=== PATIENT | male | born 1955 | race Caucasian/White ===

== ENCOUNTER → 2019-10-21 08:38 | Outpatient (CLI) | payer MEDICARE, MEDICAID, SELFPAY | PROVIDERS: Visit Provider Family Medicine | DX: I87.2 Venous insufficiency (chronic) (peripheral) (principal); E11.622 Type 2 diabetes mellitus with other skin ulcer; E11.65 Type 2 diabetes mellitus with hyperglycemia; E11.40 Type 2 diabetes mellitus with diabetic neuropathy, unspecified; L97.821 Non-pressure chronic ulcer of other part of left lower leg limited to breakdown of skin; L97.811 Non-pressure chronic ulcer of other part of right lower leg limited to breakdown of skin; R60.0 Localized edema | CPT/HCPCS: 11042; 93922; 99213; 99214 ==

== ENCOUNTER → 2019-10-25 14:18 | Outpatient (CLI) | payer MEDICARE, MEDICAID, SELFPAY | PROVIDERS: Visit Provider Family Medicine | DX: I87.2 Venous insufficiency (chronic) (peripheral) (principal); L97.821 Non-pressure chronic ulcer of other part of left lower leg limited to breakdown of skin; L97.811 Non-pressure chronic ulcer of other part of right lower leg limited to breakdown of skin | CPT/HCPCS: 29581 ==

== ENCOUNTER → 2019-10-28 09:32 | Outpatient (CLI) | payer MEDICARE, MEDICAID, SELFPAY | PROVIDERS: Visit Provider Family Medicine | DX: I87.2 Venous insufficiency (chronic) (peripheral) (principal); E11.622 Type 2 diabetes mellitus with other skin ulcer; R60.0 Localized edema; E11.65 Type 2 diabetes mellitus with hyperglycemia; L97.821 Non-pressure chronic ulcer of other part of left lower leg limited to breakdown of skin; L97.811 Non-pressure chronic ulcer of other part of right lower leg limited to breakdown of skin | CPT/HCPCS: 97597 ==

== ENCOUNTER → 2019-11-04 09:45 | Outpatient (CLI) | payer MEDICARE, MEDICAID, SELFPAY | PROVIDERS: Visit Provider Family Medicine | DX: I87.2 Venous insufficiency (chronic) (peripheral) (principal); L97.811 Non-pressure chronic ulcer of other part of right lower leg limited to breakdown of skin; R60.0 Localized edema | CPT/HCPCS: 99213; 99214 ==

== ENCOUNTER → 2019-11-25 08:50 | Outpatient (CLI) | payer MEDICARE, MEDICAID, SELFPAY | PROVIDERS: Visit Provider Family Medicine | DX: I87.2 Venous insufficiency (chronic) (peripheral) (principal); R60.9 Edema, unspecified | CPT/HCPCS: 99212; 99213 ==

== ENCOUNTER → 2024-01-09 15:41 | Outpatient (CLI) | payer MEDICARE, MEDICAID, SELFPAY | PROVIDERS: Referring Provider Nurse Practitioner; Visit Provider Nurse Practitioner | DX: J44.9 Chronic obstructive pulmonary disease, unspecified (principal); Z87.891 Personal history of nicotine dependence | CPT/HCPCS: 94060; 94726; 94729 ==

== ENCOUNTER 2025-02-24 16:53 | Emergency (ER) | payer MEDICARE, MEDICAID, SELFPAY ==
[2025-02-24] VITALS (46 sets, daily range): BP systolic 70–243; BP diastolic 40–162; PULSE 0–199; RESP 0–117; TEMP 26.4–26.6; O2SAT 77–100
--- NOTE | 2025-02-24 17:14 | EKG_ITS ---
[address] [address] Test Date: 2025-02-24 Pat Name: Lance Barlow Department: Room: Gender: Male Environmental Sustainability Manager: AUREA : 1955 Requested By: Order Number: [id number] Reading MD: Enoch Meehan Measurements Intervals Nicholson Rate: 82 P: MI: QRS: -49 QRSD: 204 T: 130 QT: 658 QTc: 768 Interpretive Statements Wide QRS rhythm with premature ventricular complexes or fusion complexes Left axis deviation Nonspecific intraventricular block Minimal voltage criteria for LVH, may be normal variant ( Giovanny product ) Inferior infarct , age undetermined Anterolateral infarct , age undetermined Electronically Signed On 03-01-2025 20:08:59 PDT by Enoch Meehan
[2025-02-24 17:30] LABS: Add Manual Diff / Slide Review NO; Basophils Absolute Auto 0 /uL (0-100); Eosinophils Absolute Auto 0 /uL (0-450); Eosinophils Percent Auto 0.1 % (2-4); Hematocrit 44.9 % (41-53); Hemoglobin 14.6 g/dL (13.5-17.5); Lymphocytes Absolute Auto 700 /uL (1100-4500); Mean Corpuscular HGB Conc 32.4 % (30-36); Mean Corpuscular Hemoglobin 31.1 PG (26-34); Monocytes Absolute Auto 500 /uL (0-900); Monocytes Percent Auto 6.4 % (3-14); Neutrophils Absolute Auto 6200 /uL (1500-7000); Neutrophils Percent Auto 83.5 % (50-75); Platelet Count 64 X10^3/uL (150-400); Red Blood Cell Count 4.68 X10^6/uL (4.5-5.9); Red Cell Distribution Width 17.4 % (11.6-14.8); White Blood Cell Count 7.5 X10^3/uL (4.5-11.0)
[2025-02-24 17:39] LABS: Ethanol (ETOH) < 10 mg/dL; Lactate (Lactic Acid) 1.2 mmol/L (0.7-2.1)
[2025-02-24 17:40] LABS: Alanine Aminotransferase 38 IU/L (<50); Albumin 3.4 g/dL (3.5-5.0); Albumin Globulin Ratio 0.9 (1.0-2.8); Alkaline Phosphatase 111 U/L (38-126); Aspartate Aminotransferase 64 IU/L (17-59); BUN Creatinine Ratio 35.1 (6-22); Bilirubin Total 1.1 mg/dL (0.2-1.3); Blood Urea Nitrogen 47 mg/dL (9-20); Calcium 7.9 mg/dL (8.4-10.2); Carbon Dioxide 24 mmol/L (22-32); Chloride 112 mmol/L (98-107); Creatine Kinase 201 U/L (55-170); Estimated Glomerular Filt Rate 57 mL/min (>60); Globulin 3.6 g/dL (1.7-4.1); Glucose 114 mg/dL (80-110); Lipase 33 U/L (23-300); Potassium 4.5 mmol/L (3.4-5.1); Sodium 144 mmol/L (137-145)
[2025-02-24 17:46] LABS: HEMOLYSIS 95 (0-50)
[2025-02-24 17:52] LABS: Troponin I 0.031 ng/mL (0.01-0.034)
[2025-02-24 17:54] LABS: Magnesium 1.7 mg/dL (1.6-2.3)
[2025-02-24 17:57] LABS: Procalcitonin 0.171 ng/mL (<0.5)
[2025-02-24 18:03] LABS: INR 3.1 (0.9-1.3); Prothrombin Time 34.6 SECONDS (9.4-12.5)
[2025-02-24 18:06] LABS: PTT Partial Thromboplastin Tim 70 SECONDS (25.1-36.5)
--- NOTE | 2025-02-24 18:13 | PC.NURSE ---
Arrives via [facility]. Hypothermic. pulse 30's, BP 60's systolic. glucose 26. amp D50 given by EMS. intubated in field with rocuronium and ketamine. no other sedation was given on the ride over. Per EMS there had been no purposeful movement prior to intubation. 7.5 ETT 23@ teeth. code blue at 1700. 1mg atropine given on arrival. core temp 79.1. Unable to document temp lower than 80F in charting. legs and abdomen appear mottled. extensive infectious skin of bilateral legs. Per EMS, pt had PCP visit weeks ago and was told to go straight to ED and did not. 18G RFA 20G LFA. transfer of care to ED ventilator. RT at bedside. 1700: Dyana Knox called, CPR started. 1 mg epi given IVP with flush 1703: Pulse check. PEA. CPR resumed. epi 1 mg given IVP with flush. compressor changed. 1706: pulse check. ROSC. carotid pulse felt. palp about 60 bpm. labs drawn. Pharmacy with epi gtt started at 2mcg/min. EKG with wide perfusing rhythm. suspect hyperkalemia. Calcium gluconate infusing. 1amp bicarb given. temp Gibson placed. Set up for femoral central line. deanna hugger and fluid warmer prepped and in place. ABG obtained. 1724: PEA arrest. CPR started. 1725: epi 1mg given IVP with flush 1725: pulse check. weak pulse felt. CPR continued. compressor changed. 1728: pulse check. Weak pulse felt. CPR continued. bicarb gtt infusing 250ml/hr. Epi gtt infusing wide open per Dr Aguilar. 1731: pulse check. weak pulse felt. CPR continued per provider so bicarb and epi can circulate. compressor changed. 1736: pulse check. weak pulse felt. US of heart obtained by Dr Aguilar at bedside. heart with contractions however did not appear to be perfusing rhythm. Attempting to get in contact with family members. No POLST. no advanced directive on file. Ric in department. Advised there is no POA. 3D TECHNOLOGIST and RN coordinator speaking with Ric. 1740: BS 135. 10unit regular insulin, amp D50 given for hyperkalemia 1744: central line successfully placed R femoral. XR called for confirmation. 1748: epi gtt completed, calcium gluconate completed. IV's flushed. 1754: PEA. CPR started. 1800: per family, stop CPR. Efforts ceased at 1800. removed from monitoring. 1839: Time of by Dr Aguilar.
--- NOTE | 2025-02-24 18:13 | PC.NURSE ---
received patient. PEA CPR initiated. Dr. Aguilar at bedside . see record for further treatment.
--- NOTE | 2025-02-24 18:14 | ED_ITS ---
HPI - General Adult General Chief complaint: Unresponsive Stated complaint: intubated hypothermic Time Seen by Provider: 02/24/25 18:13 History of Present Illness HPI narrative: 69-year-old male noted to be unresponsive at home welfare check, EMS found patient to have diminished GCS 5, hypothermia, hypoglycemia with glucose 30, IV established, dextrose given, glucose 180, still not responsive, intubated in the field with sedative/paralytic, 7.5 ET tube placed, breath sounds equal. Reportedly patient lives alone somewhat like a hermit, however did see his primary care provider in the last 2-3 weeks, per EMS at that time was told that he should go to the emergency department but refused to do so. Otherwise no recent history recent days known. Related Data Home Medications Medication Instructions Recorded Confirmed aspirin 81 mg tablet,delayed 81 mg PO QDAY ##0 12/25/12 release lisinopril 10 mg tablet 10 mg PO QDAY ##0 12/25/12 metformin 500 mg tablet 500 mg PO BIDCC ##0 12/25/12 (Glucophage) pravastatin 20 mg tablet 20 mg PO HS ##0 12/25/12 furosemide 40 mg tablet 80 mg PO BID ##0 07/13/13 glipizide 5 mg tablet 5 mg PO BID ##0 07/13/13 metoprolol tartrate 25 mg tablet 25 mg PO BID ##0 07/13/13 Allergies Allergy/AdvReac Type Severity Reaction Status Date / Time amlodipine [AMLODIPINE] Allergy Unknown Stopped Unverified 02/25/18 12:58 due to swelling. Patient unaware of allergy. Review of Systems Review of Systems Narrative: unknown recent days sx symptoms Exam Narrative Exam Narrative: GENERAL: Unresponsive, ET tube in place by EMS HEAD: No obvious trauma to face or scalp EYES: Pupils equal fixed round. ENT: Nose without bleeding, purulent drainage. Throat without erythema, tonsillar hypertrophy or exudate. Airway patent. Oral tracheal endotracheal tube in place. NECK: Trachea midline. ET tube in place CARDIOVASCULAR: Regular rate and rhythm without murmurs, gallops, or rubs. RESPIRATORY: Clear to auscultation. Breath sounds equal bilaterally. No wheezes, rales, or rhonchi. GASTROINTESTINAL: Abdomen soft, non-tender, nondistended. EXTREMITIES: Mottled appearance to lower extremities, with venous stasis like ulcerations and some erythema to lower extremity both shins. NEURO: Unresponsive, ET tube in place from EMS, no spontaneous movement nor to pain response. GCS 3. Initial Vital Signs Initial Vital Signs: Vital Signs Pulse Rate 32 L 02/24/25 16:50 Blood Pressure 70/40 L 02/24/25 16:50 Procedures Central Line Placement Right Femoral: Time of procedure: 18:15 Time Out Performed: No (between pulse checks during cardiopulmonary arrest w/ transient ROSC ) MD Prep: mask, gown and gloves Central Line Prep: Chlorhexidine scrub Ultrasound Used for Placement: Yes Central Line Lumen Inserted: triple Post Procedure: sutured in place and good blood return Complications: none Additional Comments: Right femoral catheter placed after rounds of resuscitation for PE a, when he seemed to have blood pressure and pulse enough to attempt central access in case of persistent raw skin need for transfer, right femoral line was placed with good aspiration of ports before he coded again and resuscitation efforts were ceased due to family/niece request. Course Orders Ordered: ED Orders 02/24/25 16:19 Urinalysis and Microscopic Stat 02/24/25 17:10 Blood Culture Stat Complete Blood Count AUTO DIFF Stat Comprehensive Metabolic Panel Stat ETOH [Ethanol (ETOH)] Stat Lactate (Lactic Acid) Stat Lipase Stat Magnesium Stat Procalcitonin Stat Troponin & CK Cardiac Panel Stat 02/24/25 17:14 EKG-12 Lead Stat 02/24/25 17:47 PTT Partial Thromboplastin Marquise Stat Prothrombin Time INR Stat 02/24/25 17:52 Ventilator Order 02/24/25 19:23 Consult to WELDING SYSTEMS AND EQUIPMENT REPAIRER - Invoice Machine Operator Stat Sodium Bicarbonate 150 meq/ (Sterile Water) 1,150 mls @ 150 mls/hr IV CONT SHANELL Epinephrine HCl 4 mg/ Dextrose 250 mls @ 7.5 mls/hr IV TITRATE SHANELL; Protocol Ondansetron HCl (Ondansetron 4 Mg/2 Ml Inj) 4 mg IV NOW PRN PRN Reason: Nausea And Vomiting Ondansetron HCl (Ondansetron 4 Mg Odt) 4 mg SL NOW PRN PRN Reason: Nausea And Vomiting Discontinued Medications Atropine Sulfate (Atropine 1 Mg/10 Ml Syringe) 1 mg IV NOW ONE Stop: 02/24/25 16:56 Dextrose (Dextrose 50 % In Water 25 Gm/50 Ml Syringe) 25 gm IV NOW ONE Stop: 02/24/25 17:41 Epinephrine HCl (Epinephrine 1 Mg/10 Ml Syringe) 1 mg IV NOW ONE Stop: 02/24/25 17:01 Epinephrine HCl (Epinephrine 1 Mg/10 Ml Syringe) 1 mg IV NOW ONE Stop: 02/24/25 17:04 Epinephrine HCl (Epinephrine 1 Mg/10 Ml Syringe) 1 mg IV NOW ONE Stop: 02/24/25 17:26 Epinephrine HCl (Epinephrine 1 Mg/10 Ml Syringe) 1 mg IV NOW ONE Stop: 02/24/25 17:35 Epinephrine HCl (Epinephrine 1 Mg/10 Ml Syringe) 1 mg IV NOW ONE Stop: 02/24/25 17:59 Sodium Chloride (Normal Saline 0.9%) 1,000 mls @ 1,000 mls/hr IV BOLUS ONE Stop: 02/24/25 18:13 Calcium Gluconate 9.3 meq/ (Sodium Chloride) 70 mls @ 140 mls/hr IV NOW ONE Stop: 02/24/25 17:59 Cefepime HCl 2 gm/ Sodium (Chloride) 100 mls @ 200 mls/hr IV NOW ONE Stop: 02/24/25 17:21 Vancomycin HCl/Dextrose (Vancomycin) 2,000 mg in 400 mls @ 200 mls/hr IV NOW ONE Stop: 02/24/25 19:20 Insulin Human Regular (Insulin Regular 100 Unit/Ml 3 Ml Vial) 10 unit IV NOW ONE Stop: 02/24/25 17:41 Sodium Bicarbonate (Sodium Bicarb 8.4% Syringe) 50 meq IV NOW ONE Stop: 02/24/25 17:26 Sodium Bicarbonate (Sodium Bicarb 8.4% Syringe) 50 meq IV NOW ONE Stop: 02/24/25 17:31 Sodium Bicarbonate (Sodium Bicarb 8.4% Syringe) 100 meq IV NOW ONE Stop: 02/24/25 17:02 Vital Signs Vital signs: Vital Signs - 8 hr 02/24/25 16:50 02/24/25 16:58 02/24/25 17:00 Temperature Pulse Rate 32 L 26 L 170 H Respiratory Rate 31 H Blood Pressure 70/40 L Pulse Oximetry 99 97 Oxygen Delivery Method Nasal Cannula Ambu Bag Nasal Cannula Oxygen Flow Rate 5 5 02/24/25 17:02 02/24/25 17:04 02/24/25 17:06 Temperature Pulse Rate 128 H 107 H 90 Respiratory Rate 14 Blood Pressure 169/89 H 243/143 H 241/156 H Pulse Oximetry 88 L 95 99 Oxygen Delivery Method Room Air Oxygen Flow Rate 5 5 5 02/24/25 17:08 02/24/25 17:10 02/24/25 17:12 Temperature Pulse Rate 85 84 84 Respiratory Rate 26 H 20 18 Blood Pressure 218/158 H 214/147 H 220/156 H Pulse Oximetry 94 95 90 L Oxygen Delivery Method Nasal Cannula Nasal Cannula Nasal Cannula Oxygen Flow Rate 5 5 5 02/24/25 17:14 02/24/25 17:16 02/24/25 17:18 Temperature Pulse Rate 81 81 79 Respiratory Rate 33 H 31 H 37 H Blood Pressure 205/152 H 202/140 H 197/143 H Pulse Oximetry 86 L 88 L Oxygen Delivery Method Nasal Cannula Nasal Cannula Oxygen Flow Rate 5 8 02/24/25 17:20 02/24/25 17:22 02/24/25 17:24 Temperature Pulse Rate 75 67 60 Respiratory Rate 24 24 27 H Blood Pressure 198/126 H 193/109 H 191/105 H Pulse Oximetry 88 L 88 L Oxygen Delivery Method Nasal Cannula Nasal Cannula Oxygen Flow Rate 8 8 02/24/25 17:26 02/24/25 17:28 02/24/25 17:30 Temperature Pulse Rate 98 H 146 H 118 H Respiratory Rate Blood Pressure 148/67 H Pulse Oximetry 88 L Oxygen Delivery Method Nasal Cannula Oxygen Flow Rate 02/24/25 17:32 02/24/25 17:34 02/24/25 17:36 Temperature Pulse Rate 199 H 0 L Respiratory Rate 54 H Blood Pressure 179/86 H 235/116 H 229/158 H Pulse Oximetry 89 L Oxygen Delivery Method Nasal Cannula Oxygen Flow Rate 02/24/25 17:38 02/24/25 17:38 02/24/25 17:39 Temperature 79.5 F L Pulse Rate 89 Respiratory Rate 20 Blood Pressure 218/157 H 217/162 H Pulse Oximetry 89 L Oxygen Delivery Method Nasal Cannula Oxygen Flow Rate 02/24/25 17:39 02/24/25 17:40 02/24/25 17:40 Temperature 79.7 F L 79.7 F L Pulse Rate 86 86 Respiratory Rate 20 20 Blood Pressure 226/155 H Pulse Oximetry 92 Oxygen Delivery Method Nasal Cannula Oxygen Flow Rate 02/24/25 17:41 02/24/25 17:42 02/24/25 17:42 Temperature 79.7 F L 79.7 F L Pulse Rate 86 86 Respiratory Rate 20 20 Blood Pressure 220/160 H Pulse Oximetry 91 89 L Oxygen Delivery Method Nasal Cannula Nasal Cannula Oxygen Flow Rate 02/24/25 17:43 02/24/25 17:43 02/24/25 17:44 Temperature 79.7 F L 79.7 F L Pulse Rate 85 86 Respiratory Rate 20 20 Blood Pressure 209/138 H Pulse Oximetry Oxygen Delivery Method Oxygen Flow Rate 02/24/25 17:45 02/24/25 17:45 02/24/25 17:46 Temperature 79.7 F L 79.7 F L Pulse Rate 135 H 90 Respiratory Rate 20 20 Blood Pressure 196/141 H Pulse Oximetry 100 Oxygen Delivery Method Nasal Cannula Oxygen Flow Rate 02/24/25 17:46 02/24/25 17:47 02/24/25 17:47 Temperature 79.9 F L Pulse Rate 86 Respiratory Rate 20 Blood Pressure 216/144 H 211/147 H Pulse Oximetry Oxygen Delivery Method Oxygen Flow Rate 02/24/25 17:48 02/24/25 17:48 02/24/25 17:49 Temperature 79.9 F L 79.9 F L Pulse Rate 86 86 Respiratory Rate 20 20 Blood Pressure 214/150 H Pulse Oximetry Oxygen Delivery Method Oxygen Flow Rate 02/24/25 17:50 02/24/25 17:50 02/24/25 17:51 Temperature 79.9 F L Pulse Rate 85 Respiratory Rate 20 Blood Pressure 212/149 H 206/149 H Pulse Oximetry Oxygen Delivery Method Oxygen Flow Rate 02/24/25 17:51 02/24/25 17:52 02/24/25 17:52 Temperature 79.9 F L 79.9 F L Pulse Rate 85 85 Respiratory Rate 20 22 Blood Pressure 207/150 H Pulse Oximetry 78 L Oxygen Delivery Method Nasal Cannula Oxygen Flow Rate 02/24/25 17:53 02/24/25 17:53 02/24/25 17:54 Temperature 79.9 F L 79.9 F L Pulse Rate 86 85 Respiratory Rate 20 20 Blood Pressure 199/157 H Pulse Oximetry 77 L Oxygen Delivery Method Nasal Cannula Oxygen Flow Rate 02/24/25 17:55 02/24/25 17:55 02/24/25 17:56 Temperature 79.9 F L 79.9 F L Pulse Rate 0 L 0 L Respiratory Rate 22 27 H Blood Pressure 200/142 H Pulse Oximetry 84 L 90 L Oxygen Delivery Method Oxygen Flow Rate 02/24/25 17:57 02/24/25 17:58 02/24/25 17:59 Temperature 79.9 F L 79.9 F L 79.9 F L Pulse Rate 130 H 114 H 0 L Respiratory Rate 117 H 42 H 6 L Blood Pressure Pulse Oximetry 99 99 88 L Oxygen Delivery Method Oxygen Flow Rate 02/24/25 18:00 02/24/25 18:01 02/24/25 18:02 Temperature 79.9 F L 79.9 F L 79.9 F L Pulse Rate 0 L 0 L 0 L Respiratory Rate 0 L 0 L 0 L Blood Pressure Pulse Oximetry Oxygen Delivery Method Oxygen Flow Rate Medical Decision Making Lab Data Lab results reviewed: Yes I reviewed the patient's lab results. Lab results narrative: White blood cell count 7500, hemoglobin 14.6, platelets 64,000. Sodium 144, potassium 4.5, serum CO2 24, chloride 112. BUN 47 with creatinine 1.34. Glucose 114. Mild transaminitis other labs unremarkable. CPK 201. Lipase normal. Troponin not elevated. Alcohol level negative. 02/24/25 17:10 02/24/25 17:10 Labs: Lab Results 02/24/25 02/24/25 02/24/25 Range/Units 16:19 17:10 17:47 WBC 7.5 (4.5-11.0) X10^3/uL RBC 4.68 (4.5-5.9) X10^6/uL Hgb 14.6 (13.5-17.5) g/dL Hct 44.9 (41-53) % MCV 96.0 (80-100) fL MCH 31.1 (26-34) PG MCHC 32.4 (30-36) % RDW 17.4 H (11.6-14.8) % Plt Count 64 L (150-400) X10^3/uL Neut % (Auto) 83.5 H (50-75) % Lymph % (Auto) 10.0 L (25-40) % [place] % (Auto) 6.4 (3-14) % Eos % (Auto) 0.1 L (2-4) % Baso % (Auto) 0.0 (0-2) % Neut # (Auto) 6200 (2624-9152) /uL Lymph # (Auto) 700 L (5157-7686) /uL [place] # (Auto) 500 (0-900) /uL Eos # (Auto) 0 (0-450) /uL Baso # (Auto) 0 (0-100) /uL PT 34.6 H (9.4-12.5) SECONDS INR 3.1 H (0.9-1.3) APTT 70 H (25.1-36.5) SECONDS Sodium 144 (137-145) mmol/L Potassium 4.5 (3.4-5.1) mmol/L Chloride 112 H (98-107) mmol/L Carbon Dioxide 24 (22-32) mmol/L BUN 47 H (9-20) mg/dL Creatinine 1.34 H (0.66-1.25) mg/dL Estimated GFR 57 L (>60) mL/min BUN/Creatinine Ratio 35.1 H (6-22) Glucose 114 H (80-110) mg/dL Lactate 1.2 (0.7-2.1) mmol/L Calcium 7.9 L (8.4-10.2) mg/dL Magnesium 1.7 (1.6-2.3) mg/dL Total Bilirubin 1.1 (0.2-1.3) mg/dL AST 64 H (17-59) IU/L ALT 38 (<50) IU/L Alkaline Phosphatase 111 (38-126) U/L Total Creatine Kinase 201 H (55-170) U/L Troponin I 0.031 (0.01-0.034) ng/mL Total Protein 7.0 (6.3-8.2) g/dL Albumin 3.4 L (3.5-5.0) g/dL Globulin 3.6 (1.7-4.1) g/dL Albumin/Globulin Ratio 0.9 L (1.0-2.8) Lipase 33 (23-300) U/L Procalcitonin 0.171 (<0.5) ng/mL Urine Color Yellow Urine Appearance Clear Urine pH 6.5 (4.5-8.0) Ur Specific [place] 1.020 (1.000-1.035) Urine Protein 3+ H (Negative) Urine Glucose (UA) Trace H (Negative) g/dL Urine Ketones Trace H (NEGATIVE) Urine Occult Blood 2+ H (Negative) Urine Nitrate Negative (Negative) Urine Bilirubin Negative (NEGATIVE) Urine Urobilinogen 0.2 (0.2) E.U./dL Ur Leukocyte Esterase Negative (NEGATIVE) Urine RBC 0-1/hpf (0-5/HPF) Urine WBC 0-1/hpf (0-5/HPF) Ur Squamous Epith Cells 0-1 /hpf (0-5/HPF) Urine Bacteria Occasional (0-1) (None) Ur Culture Indicated? Cult not indicated Vol Urine Centrifuged 10ml (spun) Ethyl Alcohol < 10 ( - 10) mg/dL ECG Data Attestation: I personally reviewed and interpreted this ECG as follows: Interpretation: Wide complex rhythm with rate of 82, no obvious pacer spikes. Ventricular response rate 82. MDM Narrative Medical decision making narrative: 69-year-old male arrived by EMS intubated for unresponsiveness and hypothermia, low glucose in the field treated with dextrose, sugar 30s when up to 180s, however patient remained unresponsive, therefore was intubated. Had low blood pressure on arrival to the ED, mottling, hypotension. Shortly after arrival patient lost his pulse, CPR was initiated, IV epinephrine serial doses given total of 4 mg over multiple phases of resuscitation, wide complex rhythm PEA noted on monitor, IV bicarbonate serial doses total of 4 ampules, IV calcium carbonate, dextrose given in anticipation of insulin. Patient had transient improvement and pulse with hypotension at least 2 rounds of CPR. Patient had transient ROSC from PEA enough time to place a right femoral central line, ports aspirated, then shortly after line placement patient arrested again in PEA. After CPR was resumed, case discussion by me with family member sherry Zelaya who was on phone with brother and [id number], family requests for cessation of resuscitative efforts. Efforts were discontinued. Asystole on monitor at 1840 hours on 02/24/2025, pulseless, apneic, time of declared at that time. Case discussed with cross cover physician for FARRUKH De La Rosa at [facility], who stated he would relay information to FARRUKH Bee for coordination of certification signature. Invoice Machine Operator aware, to coordinate with mortuary services and organ donation if relevant, if family still present for consultation. Discharge Plan Departure Patient Disposition: Clinical Impression: Cardiopulmonary arrest, Cardiac arrest with pulseless electrical activity Date/Time: 02/24/25 18:30
--- NOTE | 2025-02-24 18:40 | PC.NURSE ---
Temp rick carranza placed during the code. see code note
--- NOTE | 2025-02-24 18:42 | PC.NURSE ---
See code notes
[2025-02-24 18:52] LABS: Appearance Urine UA CLEAR; Bilirubin Urine UA NEGATIVE (NEGATIVE); Color Urine UA YELLOW; Glucose Urine UA TRACE g/dL (Negative); Ketones Urine UA TRACE (NEGATIVE); Leukocyte Esterase Urine UA NEGATIVE (NEGATIVE); Nitrite Urine UA NEGATIVE (Negative); Occult Blood Urine UA 2+ (Negative); Protein Urine UA 3+ (Negative); Urobilinogen Urine UA 0.2 E.U./dL (0.2); pH Urine UA 6.5 (4.5-8.0)
--- NOTE | 2025-02-24 18:53 | PC.NURSE ---
ALL MEDS WERE ENTERED/BILLED BY EARNEST SIMPSON.
[2025-02-24 19:00] LABS: Bacteria Urine Occasional (0-1); Culture Indicated Urine Cult Not Indicated; RBC Urine 0-1/HPF (0-5/HPF); Squamous Epithelial Cell Urine 0-1 /HPF (0-5/HPF); Urine Volume 10mL (spun); WBC Urine 0-1/HPF (0-5/HPF)
--- NOTE | 2025-02-24 19:06 | PC.NURSE ---
Complete bed bath to patient by 2 RN's and a SCHOOL PROGRAM DIRECTOR . Family arrived to visit patient. Dr. Aguilar in room and time of 1839. e
--- NOTE | 2025-02-24 19:08 | PC.NURSE ---
Post-mortem care provided to patient. Emotional support to family. Family at bedside.
--- NOTE | 2025-02-24 20:00 | CM.SWNOTE ---
ED CONVERTING SUPERVISOR Assessment Note: Pt is a 69yo male, resident of [place]. Pt was found unresponsive, ED staff responded to a Code Blue. Pt's Primary Care Provider is CORI Mchugh. Reviewed chart and discussed with multidisciplinary team pt's medical status, CONVERTING SUPERVISOR consulted to assist with bereavement resources to family at bedside. CONVERTING SUPERVISOR entered room to meet with patient nialeksey, Nathalie, introduced self and role. CONVERTING SUPERVISOR provided emotional support via empathetic listening as pt niece awaited rest of family (pt siblings, her own family/children). CONVERTING SUPERVISOR provided educational resources to pt niece for family grief/coping. CONVERTING SUPERVISOR was on standby for offered post-event debrief with staff. No other social work needs identified per RN. TRAVIS Pierson
--- NOTE | 2025-02-24 20:31 | PC.NURSE ---
This RN remained with patient from arrival till time of was called by Dr. Aguilar at 18:40. Patient arrives unresponsive intubated in the field by [facility]. Dyana david called at 17:00 upon patient transfer from EMS stretcher to room stretcher. [facility] still in the room. Dr. Aguilar in room. CPR immediately initiated.
--- NOTE | 2025-02-24 21:02 | PC.NURSE ---
Addendum entered by Joel Carter R.N. 02/24/25 21:08: Jyothi from donor line called back at 2108 and apologized that the coordinator hasn't been able to return the call. I informed her that family is still at bedside and that they are concerned that they need to leave soon. Jyothi said she will reach out and ask them to expedite the case. Original Note: This RN called Donor inquiry information line at 1805 and talked to woman named Linda and got case # [id number]. This RN called after family asked for no further interventions but prior to time of to open case. This RN called back at 1847 and talked to Ashley and informed them of time of . Family has been at patient bedside for some time and are only waiting for this call. This RN called third time and talked to Deepti at 20:17 asking for the coordinator to please call as family would like to leave. This RN was able to soothe family and they continue to wait at bedside waiting for call. Deepti informed this RN that the coordinator will call this RN back prior to called family.
--- NOTE | 2025-02-24 21:11 | PC.NURSE ---
This RN called [facility] coroner line and talked to Carito Arevalovasiliyjohnny about patient . I called this line at 1922. She asked for next of kin number. Patient brother and sister both at patient bedside and identity confirmed in system and are attached to patient chart. Brother and sister confirmed they would take the call together and that I could give out brother phone number for followup. Mrs. Peña called family and asked additional information about the patient. She then called this RN back and informed this RN that is was not a supply planner case and no autopsy needed. She gave case # [id number]. She informed me the flower picker is Natalee Aguilar. Family does not request patient autopsy.
--- NOTE | 2025-02-24 21:39 | PC.NURSE ---
Patient brother and sister stated that they prefer that patient is transferred to [facility] when the body is able to be released. This RN called facility and talked to Mercedes for intake. I informed her that patient body is not yet released. Family asked that patient brother be primary information for home and sister be secondary and agreed to have this RN share their names and phone numbers. Mercedes asked if this RN or another could call upon body able to be released and picked up.
--- NOTE | 2025-02-24 21:44 | PC.NURSE ---
This RN wrote all information from previous notes on patient on disposition of remains release form. This RN informed charge nurse of all current standings for patient, family and disposition sheet and gave the form to charge nurse. This RN updated family and informed them of this RN turning over case to charge nurse.
--- NOTE | 2025-02-24 22:06 | PC.NURSE ---
This RN got a call from donor inquiry line and talked to woman named Kiesha who needed additional information for a approcher to call patient family. New case number given [id number]
--- NOTE | 2025-02-24 22:07 | PC.NURSE ---
All medications that were given in the code were input by pharmacist and medications were given.
--- NOTE | 2025-02-24 22:34 | PC.NURSE ---
Call back from [facility] vendor representatives . At this time pt is able to be released to home. He is able to be a Tissue/Eye donation hold at this time.
--- NOTE | 2025-02-24 22:39 | PC.NURSE ---
Called Alexus at [facility] at [phone]. Will page out for shrimp picker.
--- NOTE | 2025-02-24 22:45 | PC.NURSE ---
Baljinder from [facility] called to advise of chicken picker in 1 hour time.
--- NOTE | 2025-02-25 00:06 | PC.NURSE ---
All belongings sent home with family prior to them departing the facility.
== END 2025-02-25 00:06 | disposition expired ==
PROVIDERS: Emergency Provider Emergency Medicine
DX: I46.9 Cardiac arrest, cause unspecified (principal); R40.2433 Glasgow coma scale score 3-8, at hospital admission
CPT/HCPCS: 36556; 80053; 80320; 81001; 82550; 83605; 83690; 83735; 84145; 84484; 85025; 85610; 85730; 87040; 87077; 92950; 93005; 96374; 96375; 96376; 99284; 99291; A4216; J0171; J0461; J0612